=== PATIENT | female | born 1940 | race Caucasian/White ===

== ENCOUNTER 2021-03-29 14:06 | Emergency (ER) | payer MEDICARE ==
[~2021-03-29] VITALS: Ht 157.5 cm; Wt 86.2 kg
[~2021-03-29 14:06] MED LIST: ACET325 PO; AMLO5 PO; ASPI325 PO; ATOR10 PO; CYAN500 PO; FISH OIL 1,2001 EAC7 PO; GLYB2.5 PO; GLYB5 PO; Hair, Skin & N1 EACH PO; ISOMON30 PO; Isosorbide Mono30 MG PO; LISHYD1012 PO; LOVA20 PO; Lovastatin20 MG PO; METF500 PO; METO100ER PO; NITR.4SL SL; OXYACE5T PO; Prilosec Otc20 MG PO; RAMI5 PO; VITAMIN D31000 UNI1 PO
[2021-03-29] MEDS ORDERED: NIFE60ER PO (14:20)
[2021-03-29] MEDS ORDERED: PIOG15 PO (14:21)
[2021-03-29] MEDS ORDERED: Lisinopril-Hct1 EAC4 PO (14:22)
[2021-03-29] MEDS ORDERED: LOVASTATIN20 MG PO (14:23)
[2021-03-29] MEDS ORDERED: HYDR1TAB94 PO (15:31)
== END 2021-03-29 15:53 | disposition home or self-care (01) ==
LOC: ER 14:06
DX: S42.202A Unspecified fracture of upper end of left humerus, initial encounter for closed fracture (principal); S80.01XA Contusion of right knee, initial encounter; Z88.6 Allergy status to analgesic agent; Z79.82 Long term (current) use of aspirin; Z87.891 Personal history of nicotine dependence; W10.9XXA Fall (on) (from) unspecified stairs and steps, initial encounter
CPT/HCPCS: 29105; 73060; 73560-RT; 96374-59; 96376-59; 99283-25; J3010

== ENCOUNTER 2021-09-04 14:25 | Emergency (ER) | payer MEDICARE ==
[~2021-09-04] VITALS: Ht 157.5 cm; Wt 78.5 kg
[~2021-09-04 14:25] MED LIST changes: +HYDR1TAB94 PO; +LOVASTATIN20 MG PO; +Lisinopril-Hct1 EAC4 PO; +NIFE60ER PO; +PIOG15 PO
[2021-09-04] MEDS ORDERED: Amaryl2 MG PO (14:59)
== END 2021-09-04 18:38 | disposition home or self-care (01) ==
LOC: ER 14:25
DX: E11.649 Type 2 diabetes mellitus with hypoglycemia without coma (principal); T38.3X5A Adverse effect of insulin and oral hypoglycemic [antidiabetic] drugs, initial encounter; Z87.891 Personal history of nicotine dependence
CPT/HCPCS: 82947; 93005; 93010; 96374; 96376; 99284-25; J7030

== ENCOUNTER 2022-09-25 14:02 | Emergency (ER) | payer MEDICARE ==
[~2022-09-25] VITALS: Ht 157.5 cm; Wt 72.6 kg
[~2022-09-25 14:02] MED LIST changes: +Amaryl2 MG PO
[2022-09-25 14:41] LABS: BASOPHILS ABSOLUTE AUTO 0.06 K/mm3 (0.00-0.23); BASOPHILS PERCENT AUTO 1 % (0-2); EOSINOPHILS ABSOLUTE AUTO 0.15 K/mm3 (0.00-0.68); EOSINOPHILS PERCENT AUTO 1 % (0-6); Hemoglobin 12.6 g/dL (11.5-16.0); IMMATURE GRAN ABSOLUTE AUTO 0.02 K/mm3 (0.00-0.10); IMMATURE GRAN PERCENT AUTO 0 % (0-1); LYMPHOCYTES ABSOLUTE AUTO 2.94 K/mm3 (0.84-5.20); LYMPHOCYTES PERCENT AUTO 28 % (21-46); MONOCYTES ABSOLUTE AUTO 0.71 K/mm3 (0.16-1.47); MONOCYTES PERCENT AUTO 7 % (4-13); Mean Corpuscular HGB 32.8 pg (26.0-34.0); Mean Corpuscular HGB Conc 34.1 g/dL (31.5-36.5); Mean Corpuscular Volume 96 fL (80-100); Mean Platelet Volume 11.3 fL (9.1-12.4); NEUTROPHILS ABSOLUTE AUTO 6.53 K/mm3 (1.96-9.15); NEUTROPHILS PERCENT AUTO 63 % (41-73); Platelet Count 279 K/mm3 (150-400); RDW Coefficient Variation 12.7 % (11.7-14.2); RDW Standard Deviation 45.1 fL (35.1-46.3); Red Blood Cell Count 3.84 M/mm3 (3.80-5.20); White Blood Cell Count 10.41 K/mm3 (4.00-11.30)
[2022-09-25 14:56] LABS: Albumin, Blood 3.1 g/dL (3.4-5.0); Albumin/Globulin Ratio 0.8 (0.8-1.8); Bilirubin, Total 0.3 mg/dL (0.1-1.0); Bun/Creatinine Ratio 29.8 (12.0-20.0); Calcium, Blood 9.3 mg/dL (8.5-10.1); Creatinine, Blood 0.97 mg/dL (0.40-1.00); Globulin, Blood 4.1 g/dL (2.2-4.0); Potassium, Blood 4.2 mmol/L (3.5-5.5); Total Protein, Blood 7.2 g/dL (6.4-8.2)
[2022-09-25 17:28] LABS: Source, Urine Clean Catch
[2022-09-25 17:32] LABS: Appearance, Urine Clear (Clear); Bilirubin, Urine Neg (Neg); Blood, Urine Neg (Neg); Color, Urine Yellow (P-Yellow); Glucose Qualitative, Urine Neg (Neg); Ketones, Urine Neg (Neg); Leukocyte Esterase, Urine Neg (Neg); Nitrite, Urine Neg (Neg); Protein, Urine Neg (Neg); Urobilinogen, Urine NORM (Normal)
== END 2022-09-25 20:20 | disposition home or self-care (01) ==
LOC: ER 14:02
PROVIDERS: Physician Assistant
DX: I49.9 Cardiac arrhythmia, unspecified (principal); F17.210 Nicotine dependence, cigarettes, uncomplicated; Z79.82 Long term (current) use of aspirin; Z79.899 Other long term (current) drug therapy; Z88.6 Allergy status to analgesic agent; Z88.8 Allergy status to other drugs, medicaments and biological substances
CPT/HCPCS: 36415; 71045; 80053; 81003; 83880; 84484; 85025; 93005; 93010; 99284-25

== ENCOUNTER 2022-10-27 09:04 | Day surgery (SDC) | payer MEDICARE ==
[~2022-10-27] VITALS: Ht 157.5 cm; Wt 72.3 kg
--- NOTE | 2022-10-27 13:33 | NUR ---
PT RETURNED TO RECOVERY ROOM IN [facility]. PT'S FAMILY IN ROOM. DR ASHLEY SPOKE WITH FAMILY. LACW DPPM SITE SOFT NON-TENDER WITH NO HEMATOMA, NO BLEEDING AND INTACT DRESSING WITH ICE BAG IN PLACE. PT DENIES CP. CALL LIGHT IN REACH.
[2022-10-27] MEDS ORDERED: Aspir 8181 MG PO (13:50)
[2022-10-27] MEDS ORDERED: KCL PO (13:52)
[2022-10-27] MEDS ORDERED: METO25ER PO (13:53)
--- NOTE | 2022-10-27 14:49 | NUR ---
NO CHANGES TO LACW PACEMAKER SITE. DISCHARGE INSTRUCTIONS REVIEWED AND ALL QUESTIONS ANSWERED. 23 G IV DISCONTINUED FROM LEFT AC WITH INTACT CANNULA. PT ESCORTED OUT WHEELCHAIR ESCORT.
== END 2022-10-27 15:00 | disposition home or self-care (01) ==
LOC: MHTC 09:04
DX: I44.1 Atrioventricular block, second degree (principal); I49.8 Other specified cardiac arrhythmias; I47.29 Other ventricular tachycardia; I25.10 Atherosclerotic heart disease of native coronary artery without angina pectoris; I35.0 Nonrheumatic aortic (valve) stenosis; I12.9 Hypertensive chronic kidney disease with stage 1 through stage 4 chronic kidney disease, or unspecified chronic kidney disease; E11.22 Type 2 diabetes mellitus with diabetic chronic kidney disease; N18.31 Chronic kidney disease, stage 3a; E78.5 Hyperlipidemia, unspecified; K21.9 Gastro-esophageal reflux disease without esophagitis; M19.90 Unspecified osteoarthritis, unspecified site; F17.210 Nicotine dependence, cigarettes, uncomplicated; Z79.82 Long term (current) use of aspirin; Z79.899 Other long term (current) drug therapy; Z88.5 Allergy status to narcotic agent; Z88.8 Allergy status to other drugs, medicaments and biological substances
CPT/HCPCS: 33208; 71046; 82947; 99152; 99153; C1785; C1894; C1898; J0690; J1644; J2250; J2405; J3010; J7030; J7040

== ENCOUNTER 2023-09-09 11:27 | Emergency (ER) | payer MEDICARE ==
[~2023-09-09] VITALS: Ht 157.5 cm; Wt 63.5 kg
[~2023-09-09 11:27] MED LIST changes: +Aspir 8181 MG PO; +KCL PO; +METO25ER PO
[2023-09-09 12:12] LABS: BASOPHILS ABSOLUTE AUTO 0.01 K/mm3 (0.00-0.23); BASOPHILS PERCENT AUTO 0 % (0-2); EOSINOPHILS ABSOLUTE AUTO 0.14 K/mm3 (0.00-0.68); EOSINOPHILS PERCENT AUTO 2 % (0-6); Hematocrit 22.2 % (33.0-51.0); Hemoglobin 6.9 g/dL (11.5-16.0); IMMATURE GRAN ABSOLUTE AUTO 0.05 K/mm3 (0.00-0.10); IMMATURE GRAN PERCENT AUTO 1 % (0-1); LYMPHOCYTES ABSOLUTE AUTO 1.35 K/mm3 (0.84-5.20); LYMPHOCYTES PERCENT AUTO 17 % (21-46); MONOCYTES ABSOLUTE AUTO 0.55 K/mm3 (0.16-1.47); MONOCYTES PERCENT AUTO 7 % (4-13); Mean Corpuscular HGB 26.6 pg (26.0-34.0); Mean Corpuscular HGB Conc 31.1 g/dL (31.5-36.5); Mean Corpuscular Volume 86 fL (80-100); Mean Platelet Volume 9.9 fL (9.1-12.4); NEUTROPHILS ABSOLUTE AUTO 6.04 K/mm3 (1.96-9.15); NEUTROPHILS PERCENT AUTO 74 % (41-73); Platelet Count 359 K/mm3 (150-400); RDW Coefficient Variation 15.2 % (11.7-14.2); RDW Standard Deviation 48.1 fL (35.1-46.3); Red Blood Cell Count 2.59 M/mm3 (3.80-5.20); White Blood Cell Count 8.14 K/mm3 (4.00-11.30)
[2023-09-09 12:41] LABS: Albumin, Blood 2.9 g/dL (3.4-5.0); Albumin/Globulin Ratio 0.7 (0.8-1.8); Bilirubin, Total 0.3 mg/dL (0.1-1.0); Bun/Creatinine Ratio 34.7 (12.0-20.0); Calcium, Blood 8.2 mg/dL (8.5-10.1); Creatinine, Blood 1.01 mg/dL (0.40-1.00); Globulin, Blood 4.1 g/dL (2.2-4.0)
[2023-09-09] MEDS ORDERED: PANT40 PO (14:35)
[2023-09-09 16:35] VITALS: BP 126/82
[2023-09-09 16:46] LABS: Hematocrit 26.3 % (33.0-51.0); Hemoglobin 8.6 g/dL (11.5-16.0)
== END 2023-09-09 17:00 | disposition home or self-care (01) ==
LOC: ER 11:27
PROVIDERS: Physician Assistant; Student in an Organized Health Care Education/Training Program
DX: D64.9 Anemia, unspecified (principal); K21.9 Gastro-esophageal reflux disease without esophagitis; I25.10 Atherosclerotic heart disease of native coronary artery without angina pectoris; E11.9 Type 2 diabetes mellitus without complications; I10 Essential (primary) hypertension; Z88.8 Allergy status to other drugs, medicaments and biological substances; Z79.82 Long term (current) use of aspirin; Z79.899 Other long term (current) drug therapy; Z95.0 Presence of cardiac pacemaker; Z79.01 Long term (current) use of anticoagulants
CPT/HCPCS: 36430; 74177; 80053; 85014; 85018; 85025; 86850; 86900; 86901; 86920; 93005; 93010; 96361; 96374; 99283-25; C9113; J7030; P9016; Q9967

== ENCOUNTER 2024-03-12 13:07 | Emergency (ER) | payer MEDICARE ==
[~2024-03-12] VITALS: Ht 157.5 cm; Wt 45.4 kg
[~2024-03-12 13:07] MED LIST changes: +B-1100 M1 PO; +ESZO2 PO; +METHI10 PO; +MULVITA PO; +PANT40 PO; +Prinivil10 MG PO
[2024-03-12 14:36] LABS: BASOPHILS ABSOLUTE AUTO 0.04 K/mm3 (0.00-0.23); BASOPHILS PERCENT AUTO 0 % (0-2); EOSINOPHILS ABSOLUTE AUTO 0.02 K/mm3 (0.00-0.68); EOSINOPHILS PERCENT AUTO 0 % (0-6); Hematocrit 43.2 % (33.0-51.0); Hemoglobin 14.5 g/dL (11.5-16.0); IMMATURE GRAN ABSOLUTE AUTO 0.07 K/mm3 (0.00-0.10); IMMATURE GRAN PERCENT AUTO 1 % (0-1); LYMPHOCYTES ABSOLUTE AUTO 2.02 K/mm3 (0.84-5.20); LYMPHOCYTES PERCENT AUTO 16 % (21-46); MONOCYTES ABSOLUTE AUTO 0.96 K/mm3 (0.16-1.47); MONOCYTES PERCENT AUTO 8 % (4-13); Mean Corpuscular HGB 31.3 pg (26.0-34.0); Mean Corpuscular HGB Conc 33.6 g/dL (31.5-36.5); Mean Corpuscular Volume 93 fL (80-100); Mean Platelet Volume 11.5 fL (9.1-12.4); NEUTROPHILS ABSOLUTE AUTO 9.71 K/mm3 (1.96-9.15); NEUTROPHILS PERCENT AUTO 76 % (41-73); Platelet Count 184 K/mm3 (150-400); RDW Coefficient Variation 12.5 % (11.7-14.2); RDW Standard Deviation 42.9 fL (35.1-46.3); Red Blood Cell Count 4.63 M/mm3 (3.80-5.20); White Blood Cell Count 12.82 K/mm3 (4.00-11.30)
[2024-03-12 14:42] LABS: Albumin, Blood 2.9 g/dL (3.4-5.0); Albumin/Globulin Ratio 0.8 (0.8-1.8); Bilirubin, Total 0.6 mg/dL (0.1-1.0); Bun/Creatinine Ratio 39.7 (12.0-20.0); Calcium, Blood 9.3 mg/dL (8.5-10.1); Creatinine, Blood 1.21 mg/dL (0.40-1.00); Globulin, Blood 3.8 g/dL (2.2-4.0); Potassium, Blood 3.3 mmol/L (3.5-5.5); Total Protein, Blood 6.7 g/dL (6.4-8.2)
[2024-03-12] MEDS ORDERED: Potassium Chloride 20 MEQ TabCR PO ONE (15:00)
[2024-03-12] MEDS ORDERED: NS 1,000 ML IV SCH ×2 (15:00→18:15)
[2024-03-12] MEDS ORDERED: Magnesium Sulf 2 GM/Water 50ML 50 ML IV ONE (16:20)
[2024-03-12] MEDS ORDERED: FentaNYL Citrate 50 MCG/ML 2 ML Injection IV PRN (18:20)
[2024-03-12] MEDS ORDERED: Ondansetron HCl 2 MG / ML 2ML Vial IV PRN (18:20)
[2024-03-12 19:11] LABS: Anti-Xa UFH, PHA Monitoring <0.10 IU/mL; Prothrombin Time Results 11.7 Sec (9.7-11.5)
[2024-03-12] MEDS ORDERED: Heparin Sodium,Porcine/0.5 NS 500 ML IV SCH (19:20)
[2024-03-12] MEDS ORDERED: Heparin Sodium 5000 Units/ML 1ML MDV IV ONE (19:20)
[2024-03-12 21:30] VITALS: BP 135/59
== END 2024-03-12 22:11 | disposition short-term general hospital (02) ==
LOC: ER 13:07
PROVIDERS: Nurse Practitioner; Student in an Organized Health Care Education/Training Program
DX: I26.99 Other pulmonary embolism without acute cor pulmonale (principal); K43.6 Other and unspecified ventral hernia with obstruction, without gangrene; I82.412 Acute embolism and thrombosis of left femoral vein; G89.29 Other chronic pain; R10.9 Unspecified abdominal pain; R19.7 Diarrhea, unspecified; K21.9 Gastro-esophageal reflux disease without esophagitis; E11.9 Type 2 diabetes mellitus without complications; I10 Essential (primary) hypertension; I25.2 Old myocardial infarction; F17.210 Nicotine dependence, cigarettes, uncomplicated; Z88.5 Allergy status to narcotic agent; Z88.6 Allergy status to analgesic agent; Z88.8 Allergy status to other drugs, medicaments and biological substances; Z79.899 Other long term (current) drug therapy
CPT/HCPCS: 71045; 74177; 80053; 83690; 83735; 85025; 85520; 85610; 85730; 96361; 96365-59; 99285-25; A9270; J1644; J2405; J3010; J3475; J7030; Q9967